=== PATIENT | female | born 2000 | race Caucasian/White ===

== ENCOUNTER 2024-05-03 11:00 | Inpatient (IN) ==
[2024-05-03] MEDS ORDERED: CALCIUM CARBONATE 500 MG CHEWABLE TAB PO PRN (11:08)
[2024-05-03] MEDS ORDERED: LIDOCAINE 1% LOCAL 20 ML VIAL INFIL PRN (11:08)
[2024-05-03] MEDS ORDERED: ACETAMINOPHEN 500 MG TAB PO PRN (11:08)
[2024-05-03] MEDS ORDERED: OXYTOCIN 30 UNITS/NSS 30 UNITS/500 ML BAG IV PRN (11:28)
[2024-05-03 11:50] LABS: Hematocrit (blood only) 31.8 % (37.0-47.0); Hemoglobin 10.1 g/dl (12.0-16.0); Mean Corpuscular Hemoglobin 27.6 pg (25.0-34.0); Mean Corpuscular Hgb Conc 31.8 g/dL (32.0-36.0); Mean Corpuscular Volume 86.9 fL (80.0-100.0); Mean Platelet Volume 10.8 fL (9.4-12.4); Platelet Count 289 K/uL (130-400); RDW Coefficient of Variation 14.5 % (11.5-14.5); RDW Standard Deviation 46.2 fL (36.4-46.3); Red Blood Count 3.66 M/uL (4.20-5.40); White Blood Count 14.07 K/ul (4.8-10.8)
[2024-05-03] MEDS: LACTATED RINGER'S 1,000 ML IV PRN (14:35)
[2024-05-03] MEDS: OXYTOCIN 30 UNITS/NSS 30 UNITS/500 ML BAG IV PRN ×2 (14:36→21:31)
--- NOTE | 2024-05-03 15:05 | History & Physical Report ---
Date of Service May 03, 2024 Assessment & Plan (1) Supervision of normal first : Plan: Jake is a 23 G1, P0 currently at 39 weeks 1 day gestational age presents for induction of labor secondary to polyhydramnios. 1. Fetus: Category 1 tracing 2. Labor: Will start oxytocin per regular protocol. Incidental artificial rupture of membranes with Vail placement. 3. GBS negative 4. Vitals within normal limits. (2) Polyhydramnios: (3) Gestational diabetes mellitus (GDM) affecting : (4) Term : Admission and Anticipated Discharge Date Admission Date: May 03, 2024 History of Present Illness Primary Care Provider: Raji Rodas MD Jake is a 23-year-old currently at 39 weeks 1 day gestational age presents for induction of labor secondary to polyhydramnios with DVP of 8.8 cm yesterday. also complicated by diet-controlled gestational diabetes. OB Labs: Blood Type O Positive 11/23/23 Antibody Screen NEGATIVE 11/23/23 Hemoglobin 11.1 g/dl (12.0-16.0) L 02/29/24 Hematocrit 33.2 % (37.0-47.0) L 02/29/24 Mean Corpuscular Volume 84.9 fL (80.0-100.0) 11/23/23 Platelet Count 232 K/uL (130-400) 11/23/23 Rubella IgG Antibody Immune (Immune) 11/23/23 Rapid Plasma Reagin Nonreactive (Nonreactive) 11/23/23 Hepatitis B Surface Antigen. NON-REACTIVE (NON-REACTIVE) 11/23/23 Hepatitis C Antibody (EIA) NON-REACTIVE (NON-REACTIVE) 11/23/23 HIV (1&2) Ag and Ab Confirmation NON-REACTIVE (NON-REACTIVE) 11/23/23 Glucose 1 Hour 50 gm Load 183 mg/dl (70-130) H 11/23/23 Maternal Serum Alpha Fetoprotein 25.8 ng/mL 11/23/23 OB Optional Labs: Chlamydia trachomatis RNA Not Detected (NotDetected) 11/02/23 Neisseria gonorrhoeae RNA Not Detected (NotDetected) 11/02/23 Alpha Fetoprotein Triple Screen SEE NOTE 11/23/23 Allergies Allergy/AdvReac Type Severity Reaction Status Date / Time Sulfa (Sulfonamide Allergy Unknown Unknown Verified 05/03/24 11:47 Antibiotics) Home Medications Medication Instructions Recorded Confirmed Type acetone (urine) test (Ketone Urine #50 ea 03/15/24 05/02/24 Rx Test strips) blood sugar diagnostic (OneTouch #150 ea 03/15/24 05/02/24 Rx Verio test strips) blood-glucose meter (OneTouch #1 ea 03/15/24 05/02/24 Rx Verio Reflect Meter) lancets 33 gauge (OneTouch Delica #150 ea 03/15/24 05/02/24 Rx Plus Lancet) ondansetron HCl 4 mg tablet 4 mg PO Q6H PRN nausea and 04/02/24 05/03/24 Rx vomiting #20 tabs albuterol sulfate 90 mcg/actuation 2 puff inhalation Q6H 05/03/24 05/03/24 History aerosol inhaler dextroamphetamine-amphetamine 10 10 mg PO DAILY 05/03/24 05/03/24 History mg tablet dextroamphetamine-amphetamine ER 15 mg PO DAILY 05/03/24 05/03/24 History 15 mg 24hr capsule,extend release gabapentin 300 mg capsule 300 mg PO TID 05/03/24 05/03/24 History lamotrigine 25 mg tablet (Lamictal) 25 mg PO BID 05/03/24 05/03/24 History prenat.vits,estela,fan-ufkg-uhxop 1 tab PO DAILY 05/03/24 05/03/24 History Patient History Medical History (Updated 05/03/24 @ 15:04 by Robert Vyas MD) Asthma ADHD Anxiety Bipolar disorder Varicella vaccination Surgical History S/P tonsillectomy Family History (Updated 10/04/23 @ 09:55 by Yue Herron) Denies family history of Ovarian cancer Breast cancer Colorectal cancer Social History (Updated 10/04/23 @ 09:56 by Yue Herron) Smoking Status: Current every day smoker Tobacco Type: Cigarettes Cigarettes Per Day: 10; Do You Dip or Chew Tobacco: No; Hx Alcohol Use: No Hx Substance Use: No Preferred Language: Upper Sorbian Communication Ability: Effective Java Enterprise Architect Required: No Beliefs That Will Affect Care: None marital status: Single marital status details: Ana Luisa Guadarrama (23) Current Living Situation: Alone Current Living Situation Comment: lives alone, no pets current occupational status: unemployed Other Information That Helps Us Care for You: No Feels Safe at Home: Yes Safety Concerns: Feels Safe At This Time Assistive Devices: None Physical Exam Genitourinary: OB Exam Abdomen: + vertex Manual OB Exam: + cervical dilation (1.5), + cervical effacement 50%, + station -2 and + amniotic fluid (Incidental AROM) clear OB Exam Monitor Tracing: + external FHT monitor used, + external uterine monitor used, + category I and + normal FHT variability; no early decelerations present, no late decelerations present and no variable decelerations Results & Data Vital Signs (Past 12 Hours) Vital Signs Temp Pulse Resp BP 05/03/24 11:30 37.3 C 20 05/03/24 11:17 91 H 113/61 Coding Level of Care Code None Diagnoses Encounter for supervision of normal first in third trimester Z34.03 Trimester: third trimester Polyhydramnios in third trimester complication, single or unspecified fetus O40.3XX0 Fetus number: single or unspecified fetus Trimester: third trimester Gestational diabetes mellitus (GDM) affecting O24.419 Term Z34.90 (1) Supervision of normal first Trimester: third trimester Qualified Code(s): Z34.03 - Encounter for supervision of normal first , third trimester (2) Polyhydramnios Fetus number: single or unspecified fetus Trimester: third trimester Qualified Code(s): O40.3XX0 - Polyhydramnios, third trimester, not applicable or unspecified
[2024-05-03] MEDS: NICOTINE 21 MG/24 HR TDSY TD SCH (17:46)
--- NOTE | 2024-05-03 23:00 | Labor Progress Brief Note ---
Date of Service May 03, 2024 Subjective Reason For Note: Routine Evaluation Assessment & Plan (1) Supervision of normal first : Plan: Jake is a 23 G1, P0 currently at 39 weeks 1 day gestational age presents for induction of labor secondary to polyhydramnios. 1. Fetus: Category 1 tracing 2. Labor: Progress noted. Reports contractions painful over the past 2 hours. Continue oxytocin per regular protocol. Incidental artificial rupture of membranes with Vail placement. 3. GBS negative 4. Vitals within normal limits. Trimester: third trimester Qualified Code(s): Z34.03 - Encounter for supervision of normal first , third trimester (2) Polyhydramnios: Fetus number: single or unspecified fetus Trimester: third trimester Qualified Code(s): O40.3XX0 - Polyhydramnios, third trimester, not applicable or unspecified (3) Gestational diabetes mellitus (GDM) affecting : (4) Term : Admission and Anticipated Discharge Date Admission Date: May 03, 2024 Physical Exam Genitourinary: Manual OB Exam: + cervical dilation (3), + cervical effacement 70%, + station -2 and + amniotic fluid clear OB Exam Monitor Tracing: + external FHT monitor used and + category I; no normal FHT variability, no early decelerations present, no late decelerations present and no variable decelerations Results & Data Vital Signs (Past 12 Hours) Vital Signs Temp Pulse Resp BP 05/03/24 22:40 82 05/03/24 22:40 130/65 05/03/24 21:30 18 05/03/24 21:30 36.7 C 18 05/03/24 20:50 81 05/03/24 20:50 129/65 05/03/24 19:16 85 05/03/24 19:16 120/69 05/03/24 19:10 18 05/03/24 19:10 36.9 C 18 05/03/24 18:38 85 05/03/24 18:38 140/62 05/03/24 17:08 83 05/03/24 17:08 120/61 05/03/24 16:01 20 05/03/24 16:01 36.8 C 20 05/03/24 16:01 93 H 05/03/24 16:01 139/62 05/03/24 14:35 81 05/03/24 14:35 36.6 C 20 129/64 05/03/24 11:30 37.3 C 20 05/03/24 11:17 91 H 113/61 Coding Level of Care Code None Diagnoses Encounter for supervision of normal first in third trimester Z34.03 Trimester: third trimester Polyhydramnios in third trimester complication, single or unspecified fetus O40.3XX0 Fetus number: single or unspecified fetus Trimester: third trimester Gestational diabetes mellitus (GDM) affecting O24.419 Term Z34.90
[2024-05-04] MEDS: BUTORPHANOL TARTRATE 2 MG/ML VIAL IV PRN (00:18)
[2024-05-04] MEDS: ONDANSETRON 4 MG OD TAB PO PRN (00:18)
[2024-05-04] MEDS ORDERED: LIDOCAINE 2% MPF LOCAL 5 ML VIAL EPI PRN ×2 (01:25→08:13)
[2024-05-04] MEDS ORDERED: NALOXONE HCL 1 MG in SODIUM CHLORIDE 0.9% 1,000 ML IV PRN ×2 (01:25→08:13)
[2024-05-04] MEDS ORDERED: diphenhydrAMINE 50 MG/ML VIAL IV PRN ×2 (01:25→08:13)
[2024-05-04] MEDS ORDERED: NALOXONE HCL 0.4 MG/1 ML VIAL/CARP IV PRN ×2 (01:25→08:13)
[2024-05-04] MEDS ORDERED: NALBUPHINE HCL 5 MG in SYRINGE 0 ML IV PRN ×2 (01:25→08:13)
[2024-05-04] MEDS ORDERED: SODIUM CHLORIDE 0.9% PF INJ 10 ML VIAL EPI PRN ×2 (01:25→08:13)
[2024-05-04] MEDS ORDERED: fentaNYL citrate PF 100 MCG/2 ML VIAL EPI PRN ×2 (01:25→08:13)
[2024-05-04] MEDS ORDERED: BUPIVACAINE 0.25% PF 30 ML VIAL EPI PRN ×2 (01:25→08:13)
[2024-05-04] MEDS ORDERED: ePHEDrine sulfate 50 MG/ML AMP IV PRN ×2 (01:25→08:13)
[2024-05-04] MEDS ORDERED: ROPIVACAINE 0.5% PF 5 MG/ML 20 ML VIAL EPI PRN ×2 (01:25→08:13)
--- NOTE | 2024-05-04 01:27 | Anesthesiology Consultation ---
Date of Service May 04, 2024 Assessment & Plan ASA ASA3 Proposed Anesthesia Anesthesia Type: Labor Epidural Risk / Benefits Reviewed With: PT / POA / Parent / Guardian, Accepts Plan and Informed Consent Obtained History Height/Weight Height: 5 ft 4.5 in Weight: 91.172 kg Allergies Allergy/AdvReac Type Severity Reaction Status Date / Time Sulfa (Sulfonamide Allergy Unknown Unknown Verified 05/03/24 11:47 Antibiotics) Medications Home Medications Medication Instructions Recorded Confirmed Last Taken acetone (urine) test (Ketone Urine #50 ea 03/15/24 05/02/24 Unknown Test strips) blood sugar diagnostic (OneTouch #150 ea 03/15/24 05/02/24 Unknown Verio test strips) blood-glucose meter (OneTouch #1 ea 03/15/24 05/02/24 Unknown Verio Reflect Meter) lancets 33 gauge (OneTouch Delica #150 ea 03/15/24 05/02/24 Unknown Plus Lancet) ondansetron HCl 4 mg tablet 4 mg PO Q6H PRN nausea and 04/02/24 05/03/24 05/03/24 09:00 vomiting #20 tabs albuterol sulfate 90 mcg/actuation 2 puff inhalation Q6H 05/03/24 05/03/24 Unknown aerosol inhaler dextroamphetamine-amphetamine 10 10 mg PO DAILY 05/03/24 05/03/24 05/02/24 16:00 mg tablet dextroamphetamine-amphetamine ER 15 mg PO DAILY 05/03/24 05/03/24 05/02/24 09:00 15 mg 24hr capsule,extend release gabapentin 300 mg capsule 300 mg PO TID 05/03/24 05/03/24 05/02/24 20:00 lamotrigine 25 mg tablet (Lamictal) 25 mg PO BID 05/03/24 05/03/24 Unknown prenat.vits,estela,yuj-qfax-aqetw 1 tab PO DAILY 05/03/24 05/03/24 05/02/24 09:00 Active Medications Generic Name Dose Route Start Last Admin Trade Name Freq PRN Reason Stop Dose Admin Butorphanol Tartrate 1 mg 05/03/24 23:50 05/04/24 00:18 Butorphanol Tartrate 2 Mg/Ml Vial IV 06/02/24 23:49 1 mg [id number] PRN Administration Labor Pain Lactated Ringer's 1,000 mls @ 125 mls/hr 05/03/24 11:08 05/04/24 01:32 Lr IV 05/05/24 11:07 999 mls/hr .Q8H PRN Administration L&D Protocol Protocol Oxytocin 30 units in 500 mls @ 20 mls/hr 05/03/24 11:30 05/03/24 20:30 Pitocin 30 Units/Nss IV 05/05/24 11:29 1.2 units/hr .Q24H PRN 20 mls/hr Labor Induction/Augmentation Titration Protocol 1.2 UNITS/HR Oxytocin 30 units in 500 mls @ 26 mls/hr 05/03/24 21:11 05/03/24 23:18 Pitocin 30 Units/Nss IV 06/02/24 21:10 1.56 units/hr .[id number] PRN 26 mls/hr Labor Induction/Augmentation Titration Protocol 1.56 UNITS/HR Nicotine 1 patch 05/03/24 17:00 05/03/24 17:46 Nicotine 21 Mg/24 Hr Tdsy TD 06/02/24 16:59 1 patch QAM MOJGAN Administration Ondansetron HCl 4 mg 05/03/24 23:58 05/04/24 00:18 Ondansetron 4 Mg Od Tab PO 06/02/24 23:57 4 mg Q4H PRN Administration Nausea And Vomiting Past Medical History Medical History (Updated 05/04/24 @ 01:28 by Williams Rosales DO) Gestational diabetes mellitus (GDM) affecting Polyhydramnios IUGR (intrauterine growth restriction) affecting care of mother Asthma ADHD Bipolar disorder Supervision of normal first Anxiety Varicella vaccination Exercise / Class Metabolic Activity II 4-5 Yardwork/Stairs/Walk up hill Past Family History Family History Denies family history of Ovarian cancer Breast cancer Colorectal cancer Past Surgical History Surgical History S/P tonsillectomy Past Anesthesia History No Hx of Anesthesia Complications and No Family Hx of Anesthesia Complications History of PONV No Hx of PONV and No Hx of Motion Sickness Social History Smoking Status: Current every day smoker Smoking cigarettes per day: 10 Do You Dip or Chew Tobacco: No Hx Alcohol Use: No Hx Substance Use: No Review of Systems denies fever/cough/ colds/ chest pain/ SOB/ CHELO denies CHELO Physical Exam Vital Signs Last Vital Signs Temp 36.7 C 05/03/24 23:32 Pulse 86 05/04/24 01:54 Resp 18 05/03/24 23:32 BP 119/58 L 05/04/24 01:54 Pulse Ox 99 05/04/24 01:54 ENMT Mouth: no TMJ abnormality and no dentition abnormality Thyromental Distance: > or= 3.5 Finger Breadths Mallampati Class: II Neck neck extension not limited Respiratory normal respiratory effort; no respiratory distress Auscultation: lungs clear to auscultation bilaterally Cardiovascular Rate/Rhythm: regular rate and regular rhythm Neurologic moves all extremities Psychiatric Orientation: alert and oriented x 3 Testing Laboratory Results 05/03/24 11:24
[2024-05-04] MEDS: fentaNYL citrate PF 100 MCG/2 ML VIAL EPI STA (01:49)
[2024-05-04] MEDS: fentANYL 2 MCG/ML BUPIVacaine 0.125%-NSS 100ML BAG ONE (01:49)
[2024-05-04] MEDS: LIDOCAINE 2%/EPINEPHRINE 1:200,000 20 ML PF EPI STA (01:50)
[2024-05-04] MEDS: BUPIVACAINE 0.25% PF 30 ML VIAL EPI STA ×2 (01:50→10:22)
[2024-05-04] MEDS: ePHEDrine sulfate 50 MG/ML AMP ONE ×2 (02:01→10:21)
[2024-05-04] MEDS: fentaNYL citrate PF 100 MCG/2 ML VIAL ONE ×2 (02:01→10:21)
[2024-05-04] MEDS: BUPIVACAINE 0.25% PF 30 ML VIAL ONE ×2 (02:01→10:20)
[2024-05-04] MEDS: SODIUM CHLORIDE 0.9% PF INJ 10 ML VIAL ONE ×2 (02:01→10:21)
[2024-05-04] MEDS: LIDOCAINE 2%/EPINEPHRINE 1:200,000 20 ML PF ONE ×2 (02:02→10:21)
[2024-05-04] MEDS: SODIUM CHLORIDE 0.9% PF INJ 10 ML VIAL EPI STA ×2 (02:14→10:22)
[2024-05-04] MEDS ORDERED: NURSING L&D Epidural Breakthrough Pain Update ONE (05:37)
[2024-05-04] MEDS: ONDANSETRON INJ 2 MG/ML 2 ML VIAL IV PRN (06:03)
[2024-05-04] MEDS: fentANYL 2 MCG/ML BUPIVacaine 0.125%-NSS 100ML BAG EPI PRN (06:54)
[2024-05-04] MEDS ORDERED: ONDANSETRON INJ 2 MG/ML 2 ML VIAL IV PRN (08:13)
[2024-05-04] MEDS ORDERED: fentANYL 2 MCG/ML BUPIVacaine 0.125%-NSS 100ML BAG EPI PRN (08:13)
[2024-05-04] MEDS: OXYTOCIN 30 UNITS/NSS 30 UNITS/500 ML BAG IV PRN (11:17)
[2024-05-04] MEDS ORDERED: bisacodyL 10 MG SUPP PR PRN (11:57)
[2024-05-04] MEDS ORDERED: OXYTOCIN 30 UNITS/NSS 30 UNITS/500 ML BAG IV PRN (11:57)
[2024-05-04] MEDS ORDERED: HYDROCORTISONE ACETATE 25 MG SUPP PR PRN (11:57)
[2024-05-04] MEDS ORDERED: oxyCODONE/ACETAMINOPHEN 5mg/325mg TAB PO PRN (11:57)
--- NOTE | 2024-05-04 12:02 | Delivery Summary ---
Vaginal Delivery Summary Date of Service May 04, 2024 Vaginal Delivery Summary Patient is a 23-year-old G1, P0 female EDC 05[birth year]09/2024 who presented for induction of labor. She had a cervical balloon placed because of unfavorable cervix and Pitocin per L&D protocol was begun at the same time. She received effective epidural analgesia. She progressed to full dilation and pushed effectively over intact perineum for delivery of a viable female infant. After the head was delivered there was a nuchal cord noted however the baby delivered through the cord. The delivered easily and was placed on the mother's abdomen for further attention and drying. She was vigorous crying and moving all 4 limbs after stimulation. After 1 minute, the cord was clamped and cut. The placenta was then expressed intact with a three-vessel cord after cord blood was obtained. bleeding was controlled with dilute Pitocin and fundal massage. A first-degree vaginal laceration was repaired with 3-0 chromic in the usual fashion. QBL is 331. Mother and infant were doing well after delivery. [facility] Vaginal Delivery Charge Delivery Type Details: [facility]
--- NOTE | 2024-05-04 12:18 | Anesthesia Procedure Note ---
Date of Service May 04, 2024 Anesthesia Post Epidural Note Vital Signs Vital Signs: Temp Pulse Resp BP Pulse Ox 99.3 F 80 14 122/66 99 05/04/24 11:42 05/04/24 12:12 05/04/24 11:57 05/04/24 12:12 05/04/24 11:19 Pain Intensity Left Lateral Abdomen: Pain Intensity: 9 Notes Mental Status: alert / awake / arousable and participated in evaluation Nausea / Vomiting: adequately controlled Pain: adequately controlled Airway Patency, RR, SpO2: stable & adequate BP & HR: stable & adequate Hydration State: stable & adequate Neuraxial Anesthesia: was administered and sensory block is resolving Anesthetic Complications: no major complications apparent and Pt Satisfied with anesthetic care Epidural: Removed without complications and With tip intact
[2024-05-04] MEDS: IBUPROFEN 600 MG TAB PO PRN (15:19)
[2024-05-04] MEDS: BENZOCAINE 20% SPRY 85 APPLN/85 GM CAN EXT PRN (16:26)
[2024-05-04] MEDS: GABAPENTIN 300 MG CAP PO SCH (17:07)
[2024-05-04] MEDS: ALBUTEROL HFA 8 GM INHALER INH SCH (19:17)
[2024-05-04] MEDS: DOCUSATE SODIUM 100 MG CAP PO SCH (20:59)
[2024-05-05 06:31] LABS: Hematocrit (blood only) 25.5 % (37.0-47.0); Hemoglobin 8.2 g/dl (12.0-16.0); Mean Corpuscular Hemoglobin 27.9 pg (25.0-34.0); Mean Corpuscular Hgb Conc 32.2 g/dL (32.0-36.0); Mean Corpuscular Volume 86.7 fL (80.0-100.0); Mean Platelet Volume 10.8 fL (9.4-12.4); Platelet Count 244 K/uL (130-400); RDW Coefficient of Variation 14.3 % (11.5-14.5); RDW Standard Deviation 45.1 fL (36.4-46.3); Red Blood Count 2.94 M/uL (4.20-5.40); White Blood Count 21.87 K/ul (4.8-10.8)
--- NOTE | 2024-05-05 07:15 | Obstetrical Progress Note ---
Date of Service May 05, 2024 Assessment & Plan (1) Encounter for care and examination after delivery: satisfactory progress continue iron containing PNV for at least 6 weeks would like to go home today if baby discharged follow up in 6 weeks Subjective Ambulation: ambulating normally Voiding: no voiding problems Passing Gas:: Yes Diet Tolerance:: regular diet Lochia:: Moderate Feeding Type:: bottle feeding some cramping but not severe Review of Systems All systems reviewed & are unremarkable except as noted in HPI & below Physical Exam Constitutional WD/WN, vitals as above Psychiatric A+Ox3, euthymic affect Genitourinary OB Exam Abdomen: + fundal height Fundus: + firm and + relation to umbilicus (at U) Results & Data Vital Signs (Past 12 Hours) Vital Signs Temp Pulse Resp BP Pulse Ox O2 Del Method 05/05/24 03:29 98.1 F 72 18 112/69 98 Room Air 05/04/24 23:02 97.9 F 86 18 125/78 98 Room Air 05/04/24 21:00 97.9 F 124 H 20 118/77 98 Room Air
[2024-05-05] MEDS ORDERED: DEXTROAMPHETAMINE AMPHETAMINE 10 MG PO SCH (09:00)
[2024-05-05] MEDS: PRENATAL VITAMIN 1 TAB PO SCH (09:17)
[2024-05-05] MEDS: ACETAMINOPHEN 325 MG TAB PO PRN (12:08)
[2024-05-05] MEDS: LIDOCAINE 2%/EPINEPHRINE 1:200,000 20 ML PF EPI STA (12:35)
[2024-05-05] MEDS: fentaNYL citrate PF 100 MCG/2 ML VIAL EPI STA (12:35)
[2024-05-05] MEDS: DIPHTHER/TETAN/PERTUS Vaccine (Tdap, Adol/Adult) 0.5mL IM ONE (12:37)
[2024-05-05] MEDS: bisacodyL 5 MG TABEC PO SCH (21:55)
--- NOTE | 2024-05-06 06:17 | Obstetrical Progress Note ---
Date of Service <Avery Nix DO - Last Filed: 05/06/24 07:23> May 06, 2024 Assessment & Plan <Avery Nix DO - Last Filed: 05/06/24 07:23> (1) Encounter for assessment: Patient is PPD 2 s/p and doing well - Eating well, voiding well, ambulating well - vitals reviewed and within normal limits - pain well controlled with analgesics - OOB, ambulation, diet progression as tolerated - Blood type: O+, GBS neg, rubella immune - Plan to discharge today, continue taking iron supplementation for 6 weeks - After discharge, 6 week follow up with OB visit type: exam and care immediately after delivery Qualified Code(s): Z39.0 - Encounter for care and examination of mother immediately after delivery <Belinda Santos MD, FACOG - Last Filed: 05/06/24 08:58> (1) Encounter for assessment: Subjective <Avery Nix DO - Last Filed: 05/06/24 07:23> 23 yo post- day 2 s/p Ambulation: ambulating normally Voiding: no voiding problems Passing Gas:: Yes Diet Tolerance:: regular diet Lochia:: Small Feeding Type:: bottle feeding Current Pain Level: 3/10 Resting comfortably this AM in NAD. Denies TOLENTINO, CP, SOB, N/V/D, LE pain/swelling. Physical Exam <Avery Nix DO - Last Filed: 05/06/24 07:23> General: patient resting comfortably, NAD, non-toxic in appearance, answers questions appropriately. Skin: warm, dry, intact HEENT: NC/AT, anicteric sclera, conjunctiva without injection, moist mucus membranes. Heart: +S1/S2, regular, no m/r/g Lungs: equal air entry bilaterally, no rales/rhonchi/wheezes Abd: +BS, soft, NT/ND, uterine fundus firm at umbilicus Ext: warm, no clubbing/cyanosis or edema, Bran's neg. Neuro: nonfocal, speech intact, no facial droop, moving all extremities. Results & Data <Avery Nix DO - Last Filed: 05/06/24 07:23> Vital Signs (Past 12 Hours) Vital Signs Temp Pulse Resp BP Pulse Ox O2 Del Method 05/06/24 00:00 36.7 C 76 16 105/62 98 Room Air 05/05/24 20:30 36.7 C 74 16 119/73 99 Room Air Supervising Physician <Belinda Santos MD, FACOG - Last Filed: 05/06/24 08:58> Co-Signing Physician Notes Resident Physician Supervision Note: I interviewed and examined the patient. Discussed with Dr. Nix and agree with findings and plan as documented in the note. Any exceptions or clarifications are listed here: [None] Documented By: Belinda Santos MD, FACOG Resident Activity Tracking <Avery Nix DO - Last Filed: 05/06/24 07:23> Resident Involvement: Resident Care Provided Care Provided: OB Delivery
[2024-05-06 06:39] LABS: Hematocrit (blood only) 26.9 % (37.0-47.0); Hemoglobin 8.5 g/dl (12.0-16.0)
== END 2024-05-06 12:50 | disposition home or self-care (01) | DRG 807 ==
LOC: 4S1 11:00 → 4E2 05-04 14:50